=== PATIENT | male | born 1985 | race Caucasian/White ===

== ENCOUNTER 2018-10-09 19:52 | Emergency (ER) | payer MEDICAID, OTHER ==
[2018-10-09 20:07] VITALS: BP 148/89
--- NOTE | 2018-10-09 20:25 | UC ---
Ear Complaint HPI - HPI Summary HPI Summary: LEFT EAR HAS FELT CLOGGED WITH MUTED HEARING FOR 2 DAYS. STATES HE HAS A HISTORY OF CERUMEN IMPACTION AND HAS BEEN FLUSHED BEFORE. NO PAIN. NO URI SYMPTOMS. - History of Current Complaint Chief Complaint: UCEar Stated Complaint: L EAR COMPLAINT Time Seen by Provider: 10/09/18 20:14 Hx Obtained From: Patient, Family/Federal Agent - MOM Onset/Duration: Gradual Onset, Lasting Days, Still Present Severity Initially: Mild Severity Currently: Mild Pain Intensity: 0 Pain Scale Used: 0-10 Numeric Aggravating Factors: Nothing Alleviating Factors: Nothing Associated Signs/Symptoms: Positive: Hearing Loss. Negative: Discharge, URI Symptoms - Allergies/Home Medications Allergies/Adverse Reactions: Allergies Allergy/AdvReac Type Severity Reaction Status Date / Time cefaclor Allergy Hives/Diff. Verified 10/09/18 20:02 Breathing/I tching Penicillins Allergy Hives Verified 10/09/18 20:06 PMH/Surg Hx/FS Hx/Imm Hx Previously Healthy: Yes - Surgical History Surgical History: None - Family History Known Family History: Positive: Non-Contributory - Social History Alcohol Use: Daily Substance Use Type: None Smoking Status (MU): Current Every Day Smoker Type: Cigarettes Amount Used/How Often: 1/2 pack day Review of Systems All Other Systems Reviewed And Are Negative: Yes Constitutional: Positive: Negative ENT: Positive: Other - LEFT EAR CLOGGED Respiratory: Positive: Negative Cardiovascular: Positive: Negative Gastrointestinal: Positive: Negative Physical Exam Triage Information Reviewed: Yes Appearance: Well-Appearing, No Pain Distress, Well-Nourished Vital Signs: Initial Vital Signs Temp 99.6 F 10/09/18 20:03 Pulse 105 10/09/18 20:03 Resp 16 10/09/18 20:03 BP 148/89 10/09/18 20:03 Pulse Ox 97 10/09/18 20:03 Vital Signs Reviewed: Yes Eyes: Positive: Conjunctiva Clear ENT: Positive: Hearing grossly normal, Pharynx normal, Other - BILATERAL EAC WITH CERUMEN. RIGHT TM SEEN TO BE NORMAL AFTER IRRIGATION. LEFT EAC WITH RETAINED CERUMEN DEEP INSIDE EVEN AFTER IRRIGATION OBSTRUCTING TM. Neck: Positive: Supple, Nontender, No Lymphadenopathy Respiratory: Positive: No respiratory distress, No accessory muscle use Cardiovascular: Positive: Pulses Normal Abdomen Description: Positive: Soft Musculoskeletal: Positive: No Edema Neurological: Positive: Alert Psychological: Positive: Age Appropriate Behavior Skin: Negative: Rashes Ear Complaint Course/Dx - Course Course Of Treatment: SUCCESSFUL IRRIGATION OF RIGHT EAR BY RN. LEFT EAC WITH RETAINED CERUMEN DESPITE IRRIGATION BY RN. TOO DEEP TO BE CURETTED. PT WITH VERY SMALL EAC OPENINGS. ADVISED FOLLOW-UP WITH ENT FOR FURTHER TREATMENT. - Differential Dx/Diagnosis Provider Diagnosis: Impacted cerumen of both ears Discharge - Sign-Out/Discharge Documenting (check all that apply): Patient Departure All imaging exams completed and their final reports reviewed: No Studies - Discharge Plan Condition: Stable Disposition: HOME Patient Education Materials: Cerumen Impaction (ED) Referrals: No Primary Care Phys,NOPCP [Primary Care Provider] - Additional Instructions: THE WAX WAS SUCCESSFULLY IRRIGATED OUT OF YOUR RIGHT EAR CANAL. A SIGNIFICANT AMOUNT OF WAX WAS IRRIGATED OUT OF HER LEFT EAR CANAL HOWEVER THERE IS STILL SOME STUCK DEEP INSIDE. IF YOUR HEARING IS NORMAL IN YOU HAVE NO DISCOMFORT YOU CAN MANAGE THIS CONSERVATIVELY AT HOME. PUT SEVERAL DROPS OF OIL (MINERAL OIL, VEGETABLE OIL, OLIVE OIL, CANOLA OIL...) IN EACH EAR ONCE OR TWICE WEEKLY. THIS WILL HELP KEEP THE WAX SOFT AND WILL HOPEFULLY PREVENT BUILDUP IN THE FUTURE AND ENCOURAGE RETAINED CERUMEN TO SOFTEN AND COME OUT NATURALLY. IF CERUMEN BUILDUP STILL OCCURS IT WILL LIKELY BE EASIER TO IRRIGATE. DO NOT USE QTIPS OTHER THAN TO CLEAN SUPERFICIALLY THIS WILL PUSH THE WAX FURTHER INTO THE EAR CANAL. EAR BUD EAR PHONES AND EAR PLUGS CAN ALSO INCREASE RISK OF CERUMEN IMPACTION. IF YOU WANT RETAINED WAX REMOVED FOLLOW-UP WITH AN ENT SPECIALIST BELOW. [facility] [place] ERMELINDA DELA CRUZ AND [place] [address] [phone] [facility] [place] [address] [place] [address] [place] [phone] [facility] [place] ([place] OFFICE HOURS ON TUESDAYS) DR. LETICIA FREEMAN Address: [address] [place] [id number] [facility] (Tuesdays) Phone [place]: Phone [place]: - Billing Disposition and Condition Condition: STABLE Disposition: Home
== END 2018-10-09 21:10 | disposition home or self-care (01) ==
LOC: UCCORT 19:52
DX: H61.23 Impacted cerumen, bilateral (principal); F17.210 Nicotine dependence, cigarettes, uncomplicated
CPT/HCPCS: 99203; G0463